=== PATIENT | male | born 1990 | race Caucasian/White ===

== ENCOUNTER 2018-02-11 15:44 | Emergency (ER) | payer SELFPAY, MEDICAID ==
[2018-02-11 17:50] LABS: ADD MAN DIFF? NO
[2018-02-11 17:52] LABS: WHITE BLOOD COUNT 6.1 10^3/ul (4.8-10.8)
[2018-02-11 17:52] LABS: BASOPHILS % 0.5 % (0.0-2.0); EOSINOPHILS # 0.2 10^3/ul (0.0-0.5); EOSINOPHILS % 2.6 % (0.0-7.0); HEMATOCRIT 38.7 % (42.0-52.0); HEMOGLOBIN 13.3 g/dl (14.0-18.0); LYMPHOCYTES # 1.8 10^3/ul (0.8-2.9); MEAN CORPUSCULAR HGB CONC 34.4 g/dl (32.0-37.0); MEAN CORPUSCULAR VOLUME 90.2 fl (82.0-101.0); MEAN PLATELET VOLUME 11.8 fl (7.4-10.4); MONOCYTE # 0.4 10^3/ul (0.3-0.9); MONOCYTES % 6.4 % (0.0-11.0); NEUTROPHIL # 3.7 10^3/ul (1.6-7.5); NEUTROPHILS % 60.2 % (39.0-77.0); PLATELET COUNT 205 10^3/UL (140-415); RED BLOOD COUNT 4.29 10^6/ul (4.70-6.10); RED CELL DISTRIBUTION WIDTH 12.5 % (11.5-14.5)
[2018-02-11 18:15] LABS: ANION GAP 10 (8-16); BLOOD UREA NITROGEN 10 mg/dl (7-20); CALCIUM 9.1 mg/dl (8.4-10.2); CARBON DIOXIDE 27 mmol/L (21-31); CHLORIDE 110 mmol/L (97-110); CREATININE 0.63 mg/dl (0.61-1.24); GLUCOSE 96 mg/dl (70-220); POTASSIUM 4.1 mmol/L (3.5-5.1); SODIUM 143 mmol/L (135-144)
[2018-02-11 18:27] LABS: TROPONIN-I < 0.012 ng/ml (0.000-0.120)
== END 2018-02-11 19:00 | disposition home or self-care (01) ==
LOC: FTE 15:44
DX: R07.9 Chest pain, unspecified (principal); R40.2252 Coma scale, best verbal response, oriented, at arrival to emergency department; R40.2142 Coma scale, eyes open, spontaneous, at arrival to emergency department; R40.2362 Coma scale, best motor response, obeys commands, at arrival to emergency department; F17.210 Nicotine dependence, cigarettes, uncomplicated
CPT/HCPCS: 71045; 80048; 84484; 85025; 93005; 99285-25